=== PATIENT | male | born 1965 | race Caucasian/White ===

== ENCOUNTER 2018-11-10 17:56 | Emergency (ER) | payer OTHER ==
[~2018-11-10] VITALS: Ht 154.9 cm; Wt 102.0 kg
[2018-11-10] MEDS ORDERED: ondansetron/PF 4mg/2ml inj IV ONE (19:05)
[2018-11-10] MEDS ORDERED: normal saline 1000ML IV soln IVB ONE (19:05)
[2018-11-10 19:46] LABS: URINE AMPHETAMINE SCREEN NEGATIVE (Neg); URINE BARBITUATE SCREEN NEGATIVE (Neg); URINE BENZODIAZEPINES SCREEN NEGATIVE (Neg); URINE CANNABINOID SCREEN NEGATIVE (Neg); URINE COCAINE SCREEN NEGATIVE (Neg); URINE METHADONE SCREEN NEGATIVE (Neg); URINE OPIATE SCREEN NEGATIVE (Neg); URINE PHENCYCLIDINE SCREEN NEGATIVE (Neg)
[2018-11-10 19:53] LABS: BASOPHILS % (AUTO) 0.2 % (0-1); EOSINOPHILS # (AUTO) 0.1 X10'3 (0-0.9); EOSINOPHILS % (AUTO) 1.2 % (0-6); HEMOGLOBIN 15.1 g/dl (14.0-17.9); LYMPHOCYTES # (AUTO) 1.1 X10'3 (1.1-4.8); LYMPHOCYTES % (AUTO) 14.5 % (21-51); MEAN CORPUSCULAR HGB CONC 33.6 g/dL (33.0-36.5); MEAN CORPUSCULAR VOLUME 92.4 FL (78-98); MEAN PLATELET VOLUME 6.9 FL (7.4-10.4); MONOCYTES # (AUTO) 0.8 X10'3 (0-0.9); MONOCYTES % (AUTO) 9.9 % (2-12); NEUTROPHILS # (AUTO) 5.7 X10'3 (1.8-7.7); NEUTROPHILS % (AUTO) 74.2 % (42-75); PLATELET COUNT 167 X10'3 (140-440); RED BLOOD COUNT 4.87 X10'6 (4.70-6.10); RED CELL DISTRIBUTION WIDTH 13.4 % (11.5-14.5); WHITE BLOOD COUNT 7.7 X10'3 (4.5-11.0)
[2018-11-10 20:05] LABS: ALANINE AMINOTRANSFERASE 59 U/L (12-78); ALBUMIN 3.5 G/DL (3.4-5.0); ALBUMIN/GLOBULIN RATIO 1.1 (1.1-1.5); ALKALINE PHOSPHATASE 71 IU/L (46-116); ANION GAP 8 (8-16); ASPARTATE AMINO TRANSFERASE 52 U/L (10-37); BILIRUBIN,TOTAL 0.5 MG/DL (0.1-1.0); BLOOD UREA NITROGEN 13 MG/DL (7-18); BUN/CREATININE RATIO 16.3 (5.4-32.0); CALCIUM 7.7 MG/DL (8.5-10.1); CHLORIDE 104 MMOL/L (99-107); ETHANOL 0.198 GM/DL (0.0-0.010); GLUCOSE 94 MG/DL (70-104); LIPASE 152 U/L (73-393); MAGNESIUM 2.3 MG/DL (1.5-2.4); POTASSIUM 3.9 MMOL/L (3.5-5.1); SODIUM 139 MMOL/L (135-145); TOTAL CARBON DIOXIDE 27.2 MMOL/L (24-32); TOTAL PROTEIN 6.7 G/DL (6.4-8.2); eGFR > 90 ML/MIN
[2018-11-10 20:13] VITALS: BP 110/48
== END 2018-11-10 20:40 | disposition home or self-care (01) ==
LOC: ER 17:56
DX: F10.929 Alcohol use, unspecified with intoxication, unspecified (principal); R55 Syncope and collapse
CPT/HCPCS: 36415; 80053; 80305; 80320; 82948; 83690; 83735; 85025; 93005; 96361; 96374; 99284; J2405; J7030

== ENCOUNTER 2020-07-29 11:00 | Inpatient (IN) | payer OTHER ==
[~2020-07-29] VITALS: Ht 180.3 cm; Wt 94.1 kg
[2020-07-29 11:38] LABS: BASOPHILS # (AUTO) 0.1 X10'3 (0-0.2); BASOPHILS % (AUTO) 0.6 % (0-1); EOSINOPHILS % (AUTO) 0.2 % (0-6); HEMATOCRIT 45.5 % (42.0-52.0); HEMOGLOBIN 15.5 g/dl (14.0-17.9); LYMPHOCYTES # (AUTO) 1.1 X10'3 (1.1-4.8); LYMPHOCYTES % (AUTO) 12.1 % (21-51); MEAN CORPUSCULAR HEMOGLOBIN 31.7 PG (27.0-31.0); MEAN CORPUSCULAR VOLUME 93.2 FL (78-98); MEAN PLATELET VOLUME 7.3 FL (7.4-10.4); MONOCYTES % (AUTO) 11.3 % (2-12); NEUTROPHILS # (AUTO) 6.9 X10'3 (1.8-7.7); NEUTROPHILS % (AUTO) 75.8 % (42-75); PLATELET COUNT 161 X10'3 (140-440); RED BLOOD COUNT 4.88 X10'6 (4.70-6.10); RED CELL DISTRIBUTION WIDTH 13.2 % (11.5-14.5)
[2020-07-29 11:52] LABS: ALANINE AMINOTRANSFERASE 24 U/L (12-78); ALBUMIN 3.8 G/DL (3.4-5.0); ALKALINE PHOSPHATASE 63 IU/L (46-116); ANION GAP 8 (8-16); ASPARTATE AMINO TRANSFERASE 17 U/L (10-37); BILIRUBIN,TOTAL 2.5 MG/DL (0.1-1.0); BLOOD UREA NITROGEN 13 MG/DL (7-18); BUN/CREATININE RATIO 10.7 (5.4-32.0); CALCIUM 9.1 MG/DL (8.5-10.1); CHLORIDE 102 MMOL/L (99-107); CREATININE 1.21 MG/DL (0.60-1.10); GLUCOSE 112 MG/DL (70-104); POTASSIUM 3.8 MMOL/L (3.5-5.1); SODIUM 136 MMOL/L (135-145); TOTAL CARBON DIOXIDE 25.8 MMOL/L (24-32); TOTAL PROTEIN 7.7 G/DL (6.4-8.2); eGFR 62 ML/MIN
[2020-07-29 12:30] LABS: LIPASE 80 U/L (73-393)
[2020-07-29 12:32] LABS: D-DIMER 0.64 MG/L FEU (0-0.50)
[2020-07-29] MEDS ORDERED: iohexol 350MG/ML 100ml bottle IV ONE ×2 (12:47→17:20)
[2020-07-29] MEDS ORDERED: HYDROmorphone inj. 0.5 MG/0.5 ML DISP.SYRIN IV PRN (15:05)
[2020-07-29] MEDS ORDERED: mag hydrox/Alum hydrox/simeth 30ml oral suspension PO PRN (15:05)
[2020-07-29] MEDS ORDERED: potassium Cl 20 mEq SR tablet PO PRN ×2 (15:05)
[2020-07-29] MEDS ORDERED: magnesium 4gm in 100ml NS 100 ML IV PRN (15:05)
[2020-07-29] MEDS ORDERED: potassium CL 10mEq/100ml bag 100 ML IV PRN ×2 (15:05)
[2020-07-29] MEDS ORDERED: acetaminophen 325mg tablet PO PRN ×2 (15:05→21:05)
[2020-07-29] MEDS ORDERED: labetalol 20mg/4ml (5mg/ml) syringe IV PRN (15:05)
[2020-07-29] MEDS ORDERED: ondansetron/PF 4mg/2ml inj IV PRN ×2 (15:05→21:00)
[2020-07-29] MEDS ORDERED: magnesium 2GM in 50ml NS 50 ML IV PRN (15:05)
--- NOTE | 2020-07-29 15:18 | NUR ---
echo at bedside
[2020-07-29] MEDS ORDERED: dextrose 50%-water 50ml dispensing syringe IV PRN (15:30)
[2020-07-29] MEDS ORDERED: gabapentin 400mg capsule PO ONE (15:30)
[2020-07-29] MEDS ORDERED: vancomycin/NS 1 GM ADD-VANTAGE 250 ML IV ONE (15:30)
[2020-07-29] MEDS ORDERED: Insulin Reg/NS 100units/100mL 100 ML IV SCH (15:30)
[2020-07-29] MEDS ORDERED: MESSAGE TO NURSING PO ONE ×2 (15:30)
[2020-07-29] MEDS ORDERED: cefazolin/dext.iso 2gm/50ml 50 ML IV ONE (15:30)
[2020-07-29] MEDS ORDERED: MALTODEXTRIN/FRUCTOSE 0.68 KCAL/ML LIQUID 296ML BOTTLE PO ONE (15:30)
[2020-07-29] MEDS ORDERED: insulin glargine (Lantus) pen - multi-dose SQ PRN (15:30)
[2020-07-29] MEDS ORDERED: NO HOME MEDS (15:58)
[2020-07-29 16:05] LABS: PARTIAL THROMBOPLASTIN TIME 34 SECONDS (22-32)
--- NOTE | 2020-07-29 16:25 | NUR ---
SPOKE WITH DR. PEPE REGARDING INSULIN DRIP, ANTIBIOTICS AND ENSURE. HE STATES TO HOLD MEDS FOR THE FLOOR, NOT TO ADMINISTER IN THE ER, THEY ARE POST PROCEDURAL MEDS.
[2020-07-29 16:29] LABS: CLARITY,URINE CLEAR (Clear); COLOR,URINE YELLOW (Yellow); GLUCOSE, URINE NEGATIVE (Neg); KETONES,URINE TRACE mg/dl (Neg); LEUKOCYTE ESTERASE ,URINE NEGATIVE (Neg); NITRITES, URINE NEGATIVE (Neg); OCCULT BLOOD,URINE NEGATIVE (Neg); PROTEIN,URINE NEGATIVE (Neg); UROBILINOGEN,URINE 0.2 E.U/dL (0.2-1.0)
[2020-07-29 16:30] LABS: UA COLLECTION TYPE VOIDED
[2020-07-29] MEDS ORDERED: midazolam 2 mg/2 ml injection ONE (17:20)
[2020-07-29] MEDS ORDERED: LIDOcaine 1% (10mg/ml)w/preservative injection 20ml MDV ONE (17:20)
[2020-07-29] MEDS ORDERED: fentaNYL/PF 50MCG/1 ML 2ML syringe ONE (17:20)
[2020-07-29] MEDS ORDERED: verapamil 2.5 mg/ml inj IV ONE (17:20)
[2020-07-29] MEDS ORDERED: nitroGLYCERIN-Tridil 50MG/D5W 250 ML IV ONE (17:20)
[2020-07-29] MEDS ORDERED: heparin 1,000unit/ml 10ml vial 10 ML ONE (17:20)
[2020-07-29] MEDS ORDERED: ringers solution, lacted 1,000 ML IV ONE (17:25)
[2020-07-29] MEDS ORDERED: iohexol 350 MG/ML 50ML vial IV ONE (18:31)
[2020-07-29] MEDS: K and/or MAG REPLACEMENT MC SCH (20:00)
[2020-07-29] MEDS ORDERED: enoxaparin 40mg/0.4ml syringe SQ SCH (20:00)
--- NOTE | 2020-07-29 20:25 | NUR ---
Patient was waiting in the laborer cement gun placing post heart cath for two hours until a bed was available for the ACCE unit floor. Upon speaking to RN at [facility], she states that she has obtained the post op vitals for the two hours and that they are in the chart.
--- NOTE | 2020-07-29 20:25 | NUR ---
Patient in room MED 314. I have received report from Luciana CLARKE and had the opportunity to ask questions and assume patient care. RN stated that post op vitals were taken for two hours prior to transfer to ACCE
[2020-07-29 20:45] VITALS: BP 131/78
[2020-07-29] MEDS ORDERED: nitroGLYCERIN 0.4mg SUBLingual tab SL PRN (21:05)
[2020-07-29] MEDS ORDERED: proCHLORperazine 10 MG/2 ml inj IV PRN (21:05)
[2020-07-29] MEDS ORDERED: OXAZEpam 15mg capsule PO PRN (21:05)
[2020-07-29] MEDS ORDERED: HYDROcodone/acetaminophen 5mg/325mg tablet PO PRN (21:05)
[2020-07-29] MEDS ORDERED: HYDROcodone/acetaminophen 10/325mg tab PO PRN (21:05)
[2020-07-29] MEDS ORDERED: thiamine inj. 100 MG in normal saline 100ml IV soln 100 ML IV ONE (21:05)
[2020-07-29] MEDS ORDERED: haloperidol 5mg tablet PO PRN (21:05)
[2020-07-29] MEDS ORDERED: LORazepam 1 MG tablet PO PRN (21:05)
[2020-07-29] MEDS ORDERED: LORazepam 2 mg/ml vial IV PRN (21:05)
[2020-07-29] MEDS ORDERED: haloperidol lactate 5mg/ml inj IM PRN (21:05)
[2020-07-29] MEDS ORDERED: thiamine 100mg/ml 2ml inj. IV ONE (21:10)
[2020-07-29 21:15] VITALS: BP 112/62
--- NOTE | 2020-07-29 21:30 | NUR ---
Paged Vascular 314 ([place]) pt has vascular studies (carotid/venous) ordered for heart surgery 07/30 @ 0084. Thanks
[2020-07-29 21:45] VITALS: BP 111/68
[2020-07-29 22:15] VITALS: BP 113/67
[2020-07-29 23:00] VITALS: BP 115/71
[2020-07-29] MEDS: metoprolol tartrate 12.5mg (1/2 tablet) PO SCH (23:08)
[2020-07-29] MEDS: docusate sod 100mg capsule PO SCH (23:09)
[2020-07-30] VITALS (16 sets, daily range): BP systolic 109–145; BP diastolic 59–75
[2020-07-30 02:10] LABS: ABG BASE EXCESS -1.6 mmol/L (-2.0-2.0); ABG HCO3 22.1 mmol/L (22.0-26.0); ABG OXYGEN SATURATION 95.8 % (94-97); ABG PO2 (T) 77.7 mmHg (75.0-100.0); FCOHb 0.6 % (0.0-3.9); FMetHb 0.1 % (0.0-1.5); FO2Hb 95.1 % (94-97); TOTAL HEMOGLOBIN 15.4 G/dl (14.0-18.0)
[2020-07-30 03:04] LABS: BASOPHILS % (AUTO) 0.5 % (0-1); EOSINOPHILS # (AUTO) 0.2 X10'3 (0-0.9); EOSINOPHILS % (AUTO) 1.9 % (0-6); HEMATOCRIT 45.4 % (42.0-52.0); HEMOGLOBIN 15.3 g/dl (14.0-17.9); LYMPHOCYTES % (AUTO) 11.8 % (21-51); MEAN CORPUSCULAR HEMOGLOBIN 31.9 PG (27.0-31.0); MEAN CORPUSCULAR HGB CONC 33.7 g/dL (33.0-36.5); MEAN CORPUSCULAR VOLUME 94.7 FL (78-98); MEAN PLATELET VOLUME 7.4 FL (7.4-10.4); MONOCYTES # (AUTO) 1.1 X10'3 (0-0.9); MONOCYTES % (AUTO) 12.9 % (2-12); NEUTROPHILS % (AUTO) 72.9 % (42-75); PLATELET COUNT 161 X10'3 (140-440); RED BLOOD COUNT 4.79 X10'6 (4.70-6.10); RED CELL DISTRIBUTION WIDTH 13.5 % (11.5-14.5); WHITE BLOOD COUNT 8.2 X10'3 (4.5-11.0)
[2020-07-30 03:19] LABS: ALBUMIN 3.6 G/DL (3.4-5.0); ANION GAP 7 (8-16); BLOOD UREA NITROGEN 12 MG/DL (7-18); BUN/CREATININE RATIO 10.7 (5.4-32.0); CALCIUM 9.1 MG/DL (8.5-10.1); CHLORIDE 105 MMOL/L (99-107); CHOL/HDL RATIO 1.3 (0.00-4.99); CHOLESTEROL 120 MG/DL (0-200); CREATININE 1.12 MG/DL (0.60-1.10); GLUCOSE 106 MG/DL (70-104); HDL CHOLESTEROL 91 MG/DL (35-60); LDL CHOLESTEROL 27 MG/DL (50-100); MAGNESIUM 2.6 MG/DL (1.5-2.4); POTASSIUM 4.1 MMOL/L (3.5-5.1); SODIUM 140 MMOL/L (135-145); TOTAL CARBON DIOXIDE 27.7 MMOL/L (24-32); TRIGLYCERIDES 70 MG/DL (20-135); eGFR 68 ML/MIN
[2020-07-30] MEDS ORDERED: MALTODEXTRIN/FRUCTOSE 0.68 KCAL/ML LIQUID 296ML BOTTLE PO ONE (05:30)
[2020-07-30] MEDS ORDERED: cefazolin/dext.iso 2gm/50ml 50 ML IV ONE (05:30)
[2020-07-30] MEDS ORDERED: gabapentin 400mg capsule PO ONE (05:30)
[2020-07-30] MEDS ORDERED: vancomycin/NS 1 GM ADD-VANTAGE 250 ML IV ONE (05:30)
[2020-07-30] MEDS: Insulin Reg/NS 100units/100mL 100 ML IV SCH ×2 (05:30→18:00)
[2020-07-30] MEDS: mupirocin 2% nasal ointment 1gm UD NS SCH ×3 (05:31→19:38)
[2020-07-30] MEDS ORDERED: ceFAZolin 1000mg inj ONE (05:57)
[2020-07-30] MEDS ORDERED: LORazepam 2 mg/ml vial IV ONE ×2 (06:00)
[2020-07-30] MEDS ORDERED: famotidine 20mg tablet PO ONE (06:00)
[2020-07-30] MEDS: metoprolol tartrate 12.5mg (1/2 tablet) PO SCH (06:25)
--- NOTE | 2020-07-30 06:40 | NUR ---
Problems reprioritized. Patient report given, questions answered & plan of care reviewed with Kell CLARKE.
[2020-07-30] MEDS ORDERED: SUFENTANIL CITRATE 50 MCG/ML 2ml ampule IV ONE (06:42)
[2020-07-30] MEDS ORDERED: midazolam 2 mg/2 ml injection ONE (06:42)
--- NOTE | 2020-07-30 07:13 | NUR ---
pt. wheeled to OR at 0640.
[2020-07-30 07:35] LABS: ABG BASE EXCESS -2.8 mmol/L (-2.0-2.0); ABG HCO3 21.3 mmol/L (22.0-26.0); ABG OXYGEN SATURATION 99.8 % (94-97); CL (ABG) 105 mmol/L (98-110); FCOHb 0.7 % (0.0-3.9); FO2Hb 99.1 % (94-97); GLUCOSE (ABG) 171 mg/dl (70-140); IONIZED CA (ABG) 1.14 mmol/L (1.10-1.43); K (ABG) 3.5 mmol/L (3.5-5.0); TOTAL HEMOGLOBIN 13.7 G/dl (14.0-18.0)
[2020-07-30] MEDS ORDERED: folic acid 1mg/0.2ml inj IV SCH (08:00)
[2020-07-30] MEDS: K and/or MAG REPLACEMENT MC SCH (08:00)
[2020-07-30] MEDS ORDERED: thiamine inj. 100 MG, MVI, adult No.4 with vit. K 10 ML in dextrose 5% water 500ml 500 ML IV SCH ×3 (08:00)
[2020-07-30] MEDS ORDERED: ticagrelor 90mg tablet PO SCH (08:00)
[2020-07-30] MEDS: docusate sod 100mg capsule PO SCH (08:00)
[2020-07-30 08:25] LABS: ABG HCO3 24.8 mmol/L (22.0-26.0); ABG OXYGEN SATURATION 99.6 % (94-97); ABG PCO2 40.5 mmHg (35.0-48.0); ABG PO2 287.3 mmHg (75.0-100.0); CL (ABG) 103 mmol/L (98-110); FCOHb 0.4 % (0.0-3.9); FMetHb 0.1 % (0.0-1.5); FO2Hb 99.1 % (94-97); GLUCOSE (ABG) 99 mg/dl (70-140); IONIZED CA (ABG) 1.03 mmol/L (1.10-1.43); K (ABG) 3.6 mmol/L (3.5-5.0); TOTAL HEMOGLOBIN 11.6 G/dl (14.0-18.0)
[2020-07-30] MEDS ORDERED: ipratropium/albuterol 3ml nebule IH PRN (08:35)
[2020-07-30 08:56] LABS: ABG BASE EXCESS VENOUS -1.5 mmol/L; ABG HCO3 VENOUS 25.4 mmol/L; ABG PCO2 VENOUS 52.5 mmHg; ABG PO2 VENOUS 56.7 mmHg; CL (ABG) 104 mmol/L (98-110); FCOHb VENOUS 0.6 %; FHHb VENOUS 11.5 %; FMetHb VENOUS 0.3 %; FO2Hb VENOUS 87.6 %; GLUCOSE (ABG) 103 mg/dl (70-140); IONIZED CA (ABG) 1.09 mmol/L (1.10-1.43); K (ABG) 4.1 mmol/L (3.5-5.0); TOTAL HEMOGLOBIN 11.8 G/dl (14.0-18.0)
[2020-07-30] MEDS ORDERED: sodium bicarbonate (8.4%) 1 mEq/ml syringe ONE (09:00)
[2020-07-30] MEDS ORDERED: MAGNESIUM SULFATE 4 MEQ/ML (5gm/10ml) injection ONE (09:00)
[2020-07-30] MEDS ORDERED: potassium Cl 2 mEq/ml inj IV ONE (09:00)
[2020-07-30] MEDS ORDERED: heparin 1,000 units/ml 10ml inj ONE (09:00)
[2020-07-30] MEDS ORDERED: aminocaproic acid 250 MG/1 ML inj. ONE (09:00)
[2020-07-30] MEDS ORDERED: methylPREDNISolone sod succ 1000mg vial ONE (09:00)
[2020-07-30] MEDS ORDERED: heparin 10,000 units/1 ML INJ ONE (09:00)
[2020-07-30] MEDS ORDERED: albumin (human) 25% 100 ML IV solution IV ONE (09:00)
[2020-07-30] MEDS ORDERED: calcium chloride 100 MG/1 ML inj IV ONE (09:00)
[2020-07-30] MEDS ORDERED: phenylephrine 10mg/ml inj. ONE ×2 (09:00→13:04)
[2020-07-30] MEDS ORDERED: LIDOcaine 2% (20 mg/ml) 5ml cardiac syringe ONE (09:00)
[2020-07-30 09:35] LABS: ABG BASE EXCESS -2.6 mmol/L (-2.0-2.0); ABG HCO3 22.1 mmol/L (22.0-26.0); ABG OXYGEN SATURATION 98.7 % (94-97); ABG PO2 126.3 mmHg (75.0-100.0); CL (ABG) 106 mmol/L (98-110); FCOHb 0.9 % (0.0-3.9); FMetHb 0.3 % (0.0-1.5); FO2Hb 97.5 % (94-97); GLUCOSE (ABG) 122 mg/dl (70-140); IONIZED CA (ABG) 1.07 mmol/L (1.10-1.43); K (ABG) 3.3 mmol/L (3.5-5.0); TOTAL HEMOGLOBIN 12.2 G/dl (14.0-18.0)
[2020-07-30 10:40] LABS: ABG BASE EXCESS -7.1 mmol/L (-2.0-2.0); ABG HCO3 17.6 mmol/L (22.0-26.0); ABG OXYGEN SATURATION 99.3 % (94-97); ABG PCO2 32.5 mmHg (35.0-48.0); ABG PO2 213.5 mmHg (75.0-100.0); CL (ABG) 105 mmol/L (98-110); FCOHb 0.4 % (0.0-3.9); FMetHb 0.3 % (0.0-1.5); FO2Hb 98.6 % (94-97); GLUCOSE (ABG) 174 mg/dl (70-140); IONIZED CA (ABG) 1.04 mmol/L (1.10-1.43); K (ABG) 3.5 mmol/L (3.5-5.0); TOTAL HEMOGLOBIN 11.2 G/dl (14.0-18.0)
[2020-07-30 11:05] LABS: ABG BASE EXCESS -3.7 mmol/L (-2.0-2.0); ABG HCO3 21.6 mmol/L (22.0-26.0); ABG OXYGEN SATURATION 99.5 % (94-97); ABG PCO2 40.1 mmHg (35.0-48.0); ABG PO2 403.3 mmHg (75.0-100.0); CL (ABG) 102 mmol/L (98-110); FCOHb 0.4 % (0.0-3.9); FMetHb 0.3 % (0.0-1.5); FO2Hb 98.8 % (94-97); GLUCOSE (ABG) 171 mg/dl (70-140); IONIZED CA (ABG) 1.29 mmol/L (1.10-1.43); TOTAL HEMOGLOBIN 9.7 G/dl (14.0-18.0)
[2020-07-30 12:10] LABS: ABG BASE EXCESS VENOUS 0.1 mmol/L; ABG HCO3 VENOUS 25.1 mmol/L; ABG PCO2 VENOUS 42.3 mmHg; ABG PO2 VENOUS 33.9 mmHg; CL (ABG) 103 mmol/L (98-110); FCOHb VENOUS 1.1 %; FHHb VENOUS 30.8 %; FMetHb VENOUS 0.1 %; GLUCOSE (ABG) 195 mg/dl (70-140); IONIZED CA (ABG) 1.06 mmol/L (1.10-1.43); K (ABG) 3.6 mmol/L (3.5-5.0)
[2020-07-30] MEDS ORDERED: niCARDipine-NS 40mg/200ml IVPB 200 ML IV ONE (12:25)
--- NOTE | 2020-07-30 12:30 | NUR ---
Received to room 2039, accompanied by MDs and surgical crew. Placed on ventilator, to quality assurance monitor, arterial line and PA line pressure monitored. Chest tubes to suction at 20 cm. Jackson cath to gravity drainage. Dressings are dry and intact. See assessment record. All vasoactive drugs are infusing via central line.
[2020-07-30] MEDS ORDERED: niCARDipine-NS 40mg/200ml IVPB 200 ML IV PRN (12:35)
[2020-07-30] MEDS ORDERED: insulin glargine (Lantus) pen - multi-dose SQ PRN (12:35)
[2020-07-30] MEDS ORDERED: pantoprazole 40 MG vial IV ONE (12:35)
[2020-07-30] MEDS ORDERED: acetaminophen 325mg tablet PO PRN ×2 (12:35)
[2020-07-30] MEDS ORDERED: magnesium hydroxide 30ml (MOM) UD suspension PO PRN (12:35)
[2020-07-30] MEDS ORDERED: nitroGLYCERIN-Tridil 50MG/D5W 250 ML IV PRN (12:35)
[2020-07-30] MEDS ORDERED: albumin (Human) 5% 250ml 250 ML IV PRN (12:35)
[2020-07-30] MEDS ORDERED: ondansetron/PF 4mg/2ml inj IV PRN (12:35)
[2020-07-30] MEDS ORDERED: normal saline 250ml IV soln 250 ML IV PRN (12:35)
[2020-07-30] MEDS ORDERED: Insulin Reg/NS 100units/100mL 100 ML IV SCH (12:35)
[2020-07-30] MEDS ORDERED: magnesium 2GM in 50ml NS 50 ML IV PRN (12:35)
[2020-07-30] MEDS ORDERED: morphine 4 MG/ML inj SYRINge IV PRN ×2 (12:35)
[2020-07-30] MEDS ORDERED: sodium phosphate inj. 15 MMOL in dextrose 5%-water 250 ML IV PRN (12:35)
[2020-07-30] MEDS ORDERED: dextrose 50%-water 50ml dispensing syringe IV PRN (12:35)
[2020-07-30] MEDS ORDERED: Neutra Phos packet PO PRN (12:35)
[2020-07-30] MEDS ORDERED: magnesium citrate 296ml oral solution PO PRN (12:35)
[2020-07-30] MEDS ORDERED: sodium phosphate inj. 30 MMOL in dextrose 5%-water 250 ML IV PRN (12:35)
[2020-07-30] MEDS ORDERED: bisacodyl 10mg suppository rectal RC PRN (12:35)
[2020-07-30] MEDS ORDERED: magnesium 4gm in 100ml NS 100 ML IV PRN (12:35)
[2020-07-30] MEDS ORDERED: DOPamine 400mg/D5W 250ml 250 ML IV PRN (12:35)
[2020-07-30] MEDS ORDERED: mineral oil 133ml enema RC PRN (12:35)
[2020-07-30] MEDS ORDERED: metoclopramide 5 mg/ml inj IV PRN (12:35)
[2020-07-30] MEDS ORDERED: morphine 4 MG/ML inj SYRINge ONE (12:37)
[2020-07-30] MEDS ORDERED: meperidine/PF 25mg/ml syringe IV STA (12:41)
--- NOTE | 2020-07-30 12:42 | NUR ---
CABG Consult: Pt s/p heart surgery and will benefit from high protein/heart healthy ed once stable as medically indicated post-op. Will f/u 08/03 for initial assessment. Addendum: 07/30/20 at [address] Amended: Links added.
[2020-07-30] MEDS: propofol 1000mg/100ml bottle 100 ML IV SCH (12:50)
[2020-07-30 12:58] LABS: BASOPHILS % (AUTO) 0 % (0-1); EOSINOPHILS % (AUTO) 0.3 % (0-6); HEMATOCRIT 32.5 % (42.0-52.0); LYMPHOCYTES # (AUTO) 0.4 X10'3 (1.1-4.8); LYMPHOCYTES % (AUTO) 4.4 % (21-51); MEAN CORPUSCULAR HEMOGLOBIN 31.6 PG (27.0-31.0); MEAN CORPUSCULAR HGB CONC 33.8 g/dL (33.0-36.5); MEAN CORPUSCULAR VOLUME 93.3 FL (78-98); MEAN PLATELET VOLUME 7.1 FL (7.4-10.4); MONOCYTES # (AUTO) 0.5 X10'3 (0-0.9); MONOCYTES % (AUTO) 5.5 % (2-12); NEUTROPHILS # (AUTO) 7.9 X10'3 (1.8-7.7); NEUTROPHILS % (AUTO) 89.8 % (42-75); PLATELET COUNT 140 X10'3 (140-440); RED BLOOD COUNT 3.49 X10'6 (4.70-6.10); WHITE BLOOD COUNT 8.8 X10'3 (4.5-11.0)
[2020-07-30] MEDS ORDERED: etomidate 2mg/ml inj. ONE (13:04)
[2020-07-30] MEDS ORDERED: rocuronium 10mg/ml inj IV ONE (13:04)
[2020-07-30] MEDS ORDERED: acetaminophen 1,000mg/100ml IV 100 ML IV ONE (13:04)
[2020-07-30] MEDS ORDERED: LIDOcaine 2% (20mg/ml) 5ml vial ONE (13:04)
[2020-07-30 13:15] LABS: ALANINE AMINOTRANSFERASE 18 U/L (12-78); ALBUMIN 3.1 G/DL (3.4-5.0); ALBUMIN/GLOBULIN RATIO 1.1 (1.1-1.5); ALKALINE PHOSPHATASE 47 IU/L (46-116); ANION GAP 8 (8-16); ASPARTATE AMINO TRANSFERASE 39 U/L (10-37); BILIRUBIN,TOTAL 1.8 MG/DL (0.1-1.0); BLOOD UREA NITROGEN 12 MG/DL (7-18); BUN/CREATININE RATIO 9.4 (5.4-32.0); CALCIUM 8.4 MG/DL (8.5-10.1); CHLORIDE 109 MMOL/L (99-107); CREATININE 1.27 MG/DL (0.60-1.10); GLUCOSE 177 MG/DL (70-104); SODIUM 143 MMOL/L (135-145); TOTAL CARBON DIOXIDE 26.2 MMOL/L (24-32); eGFR 59 ML/MIN
[2020-07-30 13:16] LABS: ABG BASE EXCESS -2.9 mmol/L (-2.0-2.0); ABG HCO3 23.2 mmol/L (22.0-26.0); ABG OXYGEN SATURATION 97.7 % (94-97); ABG PCO2 (T) 45.2 mmHg (35.0-48.0); FCOHb 0.3 % (0.0-3.9); FMetHb 0.4 % (0.0-1.5); PATIENT TEMPERATURE 36.8; RESPIRATORY RATE 12 b/min; TIDAL VOLUME 650 mL; TOTAL HEMOGLOBIN 12.4 G/dl (14.0-18.0)
[2020-07-30 13:23] LABS: POTASSIUM 3.4 MMOL/L (3.5-5.1)
[2020-07-30] MEDS: gabapentin 300mg capsule PO SCH ×2 (13:29→21:00)
[2020-07-30] MEDS: sodium chloride 0.45% 1,000 ML IV SCH (13:30)
[2020-07-30] MEDS: potassium Cl 20mEq/100mL bag 100 ML IV PRN ×4 (13:32→18:04)
[2020-07-30 13:35] LABS: PARTIAL THROMBOPLASTIN TIME 30 SECONDS (22-32)
[2020-07-30 13:36] LABS: MAGNESIUM 4.3 MG/DL (1.5-2.4)
--- NOTE | 2020-07-30 13:40 | NUR ---
Critical Phosph 1.0 and critical Magnesium 4.3; Dr. Martins at the bedside aware; will replace per protocol and monitor Mg on recheck.
[2020-07-30] MEDS: ceFAZolin/D5W- 1GM premix 50 ML IV SCH (16:23)
--- NOTE | 2020-07-30 18:24 | NUR ---
Problems reprioritized. Patient report given, questions answered & plan of care reviewed with Harriet CLARKE.
--- NOTE | 2020-07-30 18:54 | NUR ---
Patient in room ICU 2039. I have received report from Chuckie CLARKE and had the opportunity to ask questions and assume patient care.
[2020-07-30 19:22] LABS: HEMOGLOBIN 11.9 g/dl (14.0-17.9); MEAN PLATELET VOLUME 7.5 FL (7.4-10.4); WHITE BLOOD COUNT 8.4 X10'3 (4.5-11.0)
[2020-07-30 19:24] LABS: BASOPHILS % (AUTO) 0.1 % (0-1); EOSINOPHILS % (AUTO) 0 % (0-6); HEMATOCRIT 34.5 % (42.0-52.0); LYMPHOCYTES # (AUTO) 0.1 X10'3 (1.1-4.8); LYMPHOCYTES % (AUTO) 1.7 % (21-51); MEAN CORPUSCULAR HEMOGLOBIN 32.4 PG (27.0-31.0); MEAN CORPUSCULAR HGB CONC 34.5 g/dL (33.0-36.5); MONOCYTES # (AUTO) 0.2 X10'3 (0-0.9); MONOCYTES % (AUTO) 2.9 % (2-12); NEUTROPHILS % (AUTO) 95.3 % (42-75); PLATELET COUNT 147 X10'3 (140-440); RED BLOOD COUNT 3.67 X10'6 (4.70-6.10)
[2020-07-30] MEDS ORDERED: albuterol 2.5 MG/3 ML nebule CONTNEB ONE (19:25)
[2020-07-30] MEDS ORDERED: dextrose 50%-water 50ml dispensing syringe IV ONE (19:25)
[2020-07-30] MEDS ORDERED: calcium chloride inj. 1,000 MG in normal saline 100ml IV soln 100 ML IV ONE (19:25)
[2020-07-30] MEDS ORDERED: sodium bicarbonate (8.4%) 1 mEq/ml syringe IV ONE (19:25)
[2020-07-30] MEDS ORDERED: insulin regular, human 10 units/0.1 ml syringe IV ONE (19:25)
[2020-07-30] MEDS ORDERED: sodium polystyrene sulfonate 15gm/60ml oral suspension PO ONE (19:25)
[2020-07-30 19:26] LABS: ANION GAP 11 (8-16); BLOOD UREA NITROGEN 12 MG/DL (7-18); BUN/CREATININE RATIO 10.3 (5.4-32.0); CALCIUM 7.9 MG/DL (8.5-10.1); CHLORIDE 109 MMOL/L (99-107); CREATININE 1.17 MG/DL (0.60-1.10); GLUCOSE 126 MG/DL (70-104); MAGNESIUM 2.9 MG/DL (1.5-2.4); PHOSPHORUS 2.5 MG/DL (2.3-4.5); SODIUM 142 MMOL/L (135-145); TOTAL CARBON DIOXIDE 22.2 MMOL/L (24-32); eGFR 65 ML/MIN
[2020-07-30] MEDS: vancomycin/NS 1 GM ADD-VANTAGE 250 ML IV SCH (19:38)
[2020-07-30] MEDS: sennosides/docusate sodium tablet PO SCH (19:38)
[2020-07-30] MEDS: atorvastatin 10mg tablet PO SCH (21:00)
[2020-07-30 22:40] LABS: ABG BASE EXCESS -2.3 mmol/L (-2.0-2.0); ABG HCO3 21.8 mmol/L (22.0-26.0); ABG OXYGEN SATURATION 93.9 % (94-97); ABG PCO2 (T) 36.9 mmHg (35.0-48.0); ABG PO2 (T) 75.9 mmHg (75.0-100.0); FCOHb 0.3 % (0.0-3.9); FMetHb 0.3 % (0.0-1.5); FO2Hb 93.3 % (94-97); PEEP 5 cm H2O; RESPIRATORY RATE 14 b/min; TOTAL HEMOGLOBIN 12.4 G/dl (14.0-18.0)
--- NOTE | 2020-07-30 23:00 | NUR ---
1924: spoke with patient's , questions answered, update given. 0;extubated with RT without incident to 4LNC.
[2020-07-31] VITALS (24 sets, daily range): BP systolic 94–165; BP diastolic 60–83
[2020-07-31] MEDS: ceFAZolin/D5W- 1GM premix 50 ML IV SCH ×3 (00:25→16:46)
[2020-07-31 03:17] LABS: HEMOGLOBIN 11.3 g/dl (14.0-17.9); MEAN CORPUSCULAR HEMOGLOBIN 31.4 PG (27.0-31.0); WHITE BLOOD COUNT 13.4 X10'3 (4.5-11.0)
[2020-07-31 03:19] LABS: BASOPHILS % (AUTO) 0.3 % (0-1); EOSINOPHILS % (AUTO) 0 % (0-6); HEMATOCRIT 33.5 % (42.0-52.0); LYMPHOCYTES # (AUTO) 0.4 X10'3 (1.1-4.8); LYMPHOCYTES % (AUTO) 2.8 % (21-51); MEAN CORPUSCULAR HGB CONC 33.7 g/dL (33.0-36.5); MEAN CORPUSCULAR VOLUME 93.3 FL (78-98); MEAN PLATELET VOLUME 7.8 FL (7.4-10.4); MONOCYTES # (AUTO) 0.8 X10'3 (0-0.9); MONOCYTES % (AUTO) 6.3 % (2-12); NEUTROPHILS # (AUTO) 12.1 X10'3 (1.8-7.7); NEUTROPHILS % (AUTO) 90.6 % (42-75); PARTIAL THROMBOPLASTIN TIME 28 SECONDS (22-32); PLATELET COUNT 135 X10'3 (140-440); RED BLOOD COUNT 3.59 X10'6 (4.70-6.10); RED CELL DISTRIBUTION WIDTH 13.1 % (11.5-14.5)
[2020-07-31 03:34] LABS: ALANINE AMINOTRANSFERASE 24 U/L (12-78); ALKALINE PHOSPHATASE 41 IU/L (46-116); ANION GAP 8 (8-16); ASPARTATE AMINO TRANSFERASE 78 U/L (10-37); BILIRUBIN,TOTAL 0.9 MG/DL (0.1-1.0); BLOOD UREA NITROGEN 13 MG/DL (7-18); BUN/CREATININE RATIO 13.3 (5.4-32.0); CHLORIDE 113 MMOL/L (99-107); CREATININE 0.98 MG/DL (0.60-1.10); GLUCOSE 106 MG/DL (70-104); PHOSPHORUS 3.5 MG/DL (2.3-4.5); POTASSIUM 3.9 MMOL/L (3.5-5.1); SODIUM 146 MMOL/L (135-145); TOTAL CARBON DIOXIDE 24.6 MMOL/L (24-32); TOTAL PROTEIN 6.1 G/DL (6.4-8.2); eGFR 80 ML/MIN
[2020-07-31] MEDS: potassium Cl 20mEq/100mL bag 100 ML IV PRN ×2 (04:03→05:19)
--- NOTE | 2020-07-31 06:30 | NUR ---
Patient in room ICU 2039. I have received report from Harriet CLARKE and had the opportunity to ask questions and assume patient care.
--- NOTE | 2020-07-31 07:00 | NUR ---
Dr. Martins did pacer check, no underlining rhythm.
[2020-07-31] MEDS: sennosides/docusate sodium tablet PO SCH ×2 (07:44→20:54)
[2020-07-31] MEDS: mupirocin 2% nasal ointment 1gm UD NS SCH ×2 (07:44→20:55)
[2020-07-31] MEDS: gabapentin 300mg capsule PO SCH ×3 (07:44→20:54)
[2020-07-31] MEDS: aspirin 325mg tablet, delayed-release (Ecotrin) PO SCH (07:44)
[2020-07-31] MEDS: potassium Cl 20 mEq SR tablet PO PRN (07:53)
[2020-07-31] MEDS ORDERED: metoprolol tartrate 12.5mg (1/2 tablet) PO SCH (08:00)
--- NOTE | 2020-07-31 08:15 | NUR ---
Problems reprioritized. Patient report given, questions answered & plan of care reviewed with Chuckie CLARKE.
[2020-07-31] MEDS: vancomycin/NS 1 GM ADD-VANTAGE 250 ML IV SCH ×2 (08:28→20:54)
[2020-07-31] MEDS: insulin Lispro (HumaLOG) vial - multi-dose SQ SCH ×3 (08:42→18:37)
[2020-07-31] MEDS: amLODIPine 5mg tablet PO SCH (10:30)
[2020-07-31] MEDS ORDERED: amLODIPine 5mg tablet PO ONE (11:55)
[2020-07-31] MEDS: HYDROcodone/acetaminophen 10/325mg tab PO PRN (13:49)
--- NOTE | 2020-07-31 14:48 | NUR ---
Spoke to Dr Martins regarding pacer sensitivity as pacer started v pacing at 110. Turned the rate up to 70 and turned A tracking and now patient av paced at 70
[2020-07-31] MEDS: atorvastatin 10mg tablet PO SCH (20:54)
[2020-07-31] MEDS: propofol 1000mg/100ml bottle 100 ML IV SCH (23:34)
[2020-08-01] VITALS (23 sets, daily range): BP systolic 104–149; BP diastolic 61–89
[2020-08-01] MEDS: ceFAZolin/D5W- 1GM premix 50 ML IV SCH (00:07)
[2020-08-01 04:06] LABS: ANION GAP 6 (8-16); BLOOD UREA NITROGEN 17 MG/DL (7-18); BUN/CREATININE RATIO 18.5 (5.4-32.0); CALCIUM 8.2 MG/DL (8.5-10.1); CHLORIDE 108 MMOL/L (99-107); CREATININE 0.92 MG/DL (0.60-1.10); GLUCOSE 147 MG/DL (70-104); MAGNESIUM 2.9 MG/DL (1.5-2.4); PHOSPHORUS 2.5 MG/DL (2.3-4.5); POTASSIUM 4.6 MMOL/L (3.5-5.1); SODIUM 139 MMOL/L (135-145); TOTAL CARBON DIOXIDE 25.3 MMOL/L (24-32); eGFR 86 ML/MIN
[2020-08-01 04:13] LABS: BASOPHILS % (AUTO) 0.2 % (0-1); EOSINOPHILS % (AUTO) 0 % (0-6); HEMATOCRIT 34.7 % (42.0-52.0); HEMOGLOBIN 11.7 g/dl (14.0-17.9); LYMPHOCYTES # (AUTO) 0.6 X10'3 (1.1-4.8); LYMPHOCYTES % (AUTO) 3.4 % (21-51); MEAN CORPUSCULAR HEMOGLOBIN 31.6 PG (27.0-31.0); MEAN CORPUSCULAR HGB CONC 33.6 g/dL (33.0-36.5); MEAN CORPUSCULAR VOLUME 94.1 FL (78-98); MEAN PLATELET VOLUME 7.9 FL (7.4-10.4); MONOCYTES # (AUTO) 1.3 X10'3 (0-0.9); MONOCYTES % (AUTO) 7.6 % (2-12); NEUTROPHILS # (AUTO) 15.3 X10'3 (1.8-7.7); NEUTROPHILS % (AUTO) 88.8 % (42-75); PLATELET COUNT 123 X10'3 (140-440); RED BLOOD COUNT 3.69 X10'6 (4.70-6.10); RED CELL DISTRIBUTION WIDTH 13.2 % (11.5-14.5); WHITE BLOOD COUNT 17.2 X10'3 (4.5-11.0)
--- NOTE | 2020-08-01 06:34 | NUR ---
Problems reprioritized. Patient report given, questions answered & plan of care reviewed with TRICIA Bautista.
[2020-08-01] MEDS: pantoprazole 40mg Tablet.DR PO SCH (08:11)
[2020-08-01] MEDS: sennosides/docusate sodium tablet PO SCH ×2 (08:11→20:56)
[2020-08-01] MEDS: mupirocin 2% nasal ointment 1gm UD NS SCH (08:11)
[2020-08-01] MEDS: aspirin 325mg tablet, delayed-release (Ecotrin) PO SCH (08:11)
[2020-08-01] MEDS: amLODIPine 5mg tablet PO SCH (08:11)
[2020-08-01] MEDS: gabapentin 300mg capsule PO SCH (08:11)
[2020-08-01] MEDS: insulin Lispro (HumaLOG) vial - multi-dose SQ SCH ×2 (13:22→18:58)
[2020-08-01] MEDS: sodium chloride 0.45% 1,000 ML IV SCH (13:55)
[2020-08-01] MEDS: Insulin Reg/NS 100units/100mL 100 ML IV SCH (18:05)
--- NOTE | 2020-08-01 18:22 | NUR ---
Problems reprioritized. Patient report given, questions answered & plan of care reviewed with Opal CLARKE.
--- NOTE | 2020-08-01 18:30 | NUR ---
Problems reprioritized. Patient report given, questions answered & plan of care reviewed with TRICIA Bautista. Addendum: 08/01/20 at 5 by Opal Moon RN Patient in room ICU 2039. I have received report from TRICIA Bautista and had the opportunity to ask questions and assume patient care.
[2020-08-01] MEDS: lisinopril 2.5mg tablet PO SCH (20:56)
[2020-08-01] MEDS: atorvastatin 10mg tablet PO SCH (20:57)
[2020-08-02] VITALS (21 sets, daily range): BP systolic 94–136; BP diastolic 56–78
[2020-08-02 03:02] LABS: ALBUMIN 2.8 G/DL (3.4-5.0); ANION GAP 8 (8-16); BLOOD UREA NITROGEN 18 MG/DL (7-18); BUN/CREATININE RATIO 19.6 (5.4-32.0); CALCIUM 7.9 MG/DL (8.5-10.1); CHLORIDE 109 MMOL/L (99-107); CREATININE 0.92 MG/DL (0.60-1.10); GLUCOSE 90 MG/DL (70-104); MAGNESIUM 2.6 MG/DL (1.5-2.4); PHOSPHORUS 2.6 MG/DL (2.3-4.5); POTASSIUM 4.3 MMOL/L (3.5-5.1); SODIUM 141 MMOL/L (135-145); TOTAL CARBON DIOXIDE 23.7 MMOL/L (24-32); eGFR 86 ML/MIN
[2020-08-02 03:23] LABS: BASOPHILS % (AUTO) 0.1 % (0-1); EOSINOPHILS % (AUTO) 0.1 % (0-6); HEMATOCRIT 35.4 % (42.0-52.0); HEMOGLOBIN 11.8 g/dl (14.0-17.9); LYMPHOCYTES # (AUTO) 1.6 X10'3 (1.1-4.8); LYMPHOCYTES % (AUTO) 12.5 % (21-51); MEAN CORPUSCULAR HEMOGLOBIN 31.2 PG (27.0-31.0); MEAN CORPUSCULAR HGB CONC 33.4 g/dL (33.0-36.5); MEAN CORPUSCULAR VOLUME 93.4 FL (78-98); MONOCYTES # (AUTO) 1.1 X10'3 (0-0.9); MONOCYTES % (AUTO) 9.1 % (2-12); NEUTROPHILS # (AUTO) 9.8 X10'3 (1.8-7.7); NEUTROPHILS % (AUTO) 78.2 % (42-75); PLATELET COUNT 128 X10'3 (140-440); RED BLOOD COUNT 3.79 X10'6 (4.70-6.10); RED CELL DISTRIBUTION WIDTH 13.1 % (11.5-14.5); WHITE BLOOD COUNT 12.6 X10'3 (4.5-11.0)
[2020-08-02] MEDS: potassium Cl 20 mEq SR tablet PO PRN (03:51)
--- NOTE | 2020-08-02 06:43 | NUR ---
Problems reprioritized. Patient report given, questions answered & plan of care reviewed with TRICIA Reno.
[2020-08-02] MEDS ORDERED: amLODIPine 2.5mg tablet PO SCH (08:00)
[2020-08-02] MEDS: pantoprazole 40mg Tablet.DR PO SCH (08:02)
[2020-08-02] MEDS: aspirin 325mg tablet, delayed-release (Ecotrin) PO SCH (08:02)
[2020-08-02] MEDS: sennosides/docusate sodium tablet PO SCH ×2 (08:02→21:36)
[2020-08-02] MEDS: HYDROcodone/acetaminophen 10/325mg tab PO PRN ×3 (08:11→22:07)
[2020-08-02] MEDS: insulin Lispro (HumaLOG) vial - multi-dose SQ SCH ×3 (10:50→19:37)
[2020-08-02] MEDS ORDERED: magnesium hydroxide 30ml (MOM) UD suspension PO PRN (11:20)
[2020-08-02] MEDS ORDERED: morphine 2 MG/ML inj. syringe IV PRN (11:25)
--- NOTE | 2020-08-02 12:41 | NUR ---
Initial: Pt admit DX CAD s/p cardiac cath and POD #3 s/p aortic root replacement per EMR. PO 50-75% NCS meals at this time decent post-op. Pt seen by RD for written/verbal CABG/HH diet eds w/ RD contact information provided. Pt is agreeable to vasu PERRY; notified. LBM today; pt reports no issues w/ constipation during RD visit. Will continue to monitor for additional protein needs post-op. Rec: 1. advance diet as medically indicated to heart healthy 2. chocolate vicenta PERRY 3. routine bowel care 4. wt per rx Addendum: 08/02/20 at [address] Amended: Links added.
[2020-08-02] MEDS: JUVEN Shake w/Arg/Glut/Ca2+Bmb (Juven 19.3gm) pkt 240ml PO SCH (14:00)
--- NOTE | 2020-08-02 18:30 | NUR ---
Patient in room ICU 2039. I have received report from TRICIA Reno and had the opportunity to ask questions and assume patient care.
[2020-08-02] MEDS: lisinopril 2.5mg tablet PO SCH (21:36)
[2020-08-02] MEDS: atorvastatin 10mg tablet PO SCH (21:36)
[2020-08-03] VITALS (16 sets, daily range): BP systolic 105–138; BP diastolic 52–72
[2020-08-03 03:32] LABS: BASOPHILS % (AUTO) 0.3 % (0-1); EOSINOPHILS # (AUTO) 0.1 X10'3 (0-0.9); EOSINOPHILS % (AUTO) 0.7 % (0-6); HEMATOCRIT 36.3 % (42.0-52.0); HEMOGLOBIN 12.3 g/dl (14.0-17.9); LYMPHOCYTES # (AUTO) 1.3 X10'3 (1.1-4.8); LYMPHOCYTES % (AUTO) 13.8 % (21-51); MEAN CORPUSCULAR HEMOGLOBIN 31.7 PG (27.0-31.0); MEAN CORPUSCULAR VOLUME 93.2 FL (78-98); MEAN PLATELET VOLUME 7.6 FL (7.4-10.4); MONOCYTES % (AUTO) 10.1 % (2-12); NEUTROPHILS # (AUTO) 7.2 X10'3 (1.8-7.7); NEUTROPHILS % (AUTO) 75.1 % (42-75); PLATELET COUNT 179 X10'3 (140-440); RED BLOOD COUNT 3.89 X10'6 (4.70-6.10); WHITE BLOOD COUNT 9.6 X10'3 (4.5-11.0)
[2020-08-03 03:46] LABS: ALBUMIN 2.7 G/DL (3.4-5.0); ANION GAP 9 (8-16); BLOOD UREA NITROGEN 15 MG/DL (7-18); BUN/CREATININE RATIO 17.2 (5.4-32.0); CHLORIDE 105 MMOL/L (99-107); CREATININE 0.87 MG/DL (0.60-1.10); GLUCOSE 85 MG/DL (70-104); MAGNESIUM 2.3 MG/DL (1.5-2.4); PHOSPHORUS 4.3 MG/DL (2.3-4.5); POTASSIUM 3.8 MMOL/L (3.5-5.1); SODIUM 137 MMOL/L (135-145); TOTAL CARBON DIOXIDE 22.9 MMOL/L (24-32); eGFR > 90 ML/MIN
--- NOTE | 2020-08-03 06:30 | NUR ---
Problems reprioritized. Patient report given, questions answered & plan of care reviewed with TRICIA Reno.
[2020-08-03] MEDS ORDERED: furosemide 40mg/4ml inj IV ONE (07:10)
[2020-08-03] MEDS ORDERED: potassium Cl 20mEq/100mL bag 100 ML IV PRN (07:15)
[2020-08-03] MEDS ORDERED: magnesium 4gm in 100ml NS 100 ML IV PRN (07:15)
[2020-08-03] MEDS ORDERED: potassium Cl 20 mEq SR tablet PO PRN (07:15)
[2020-08-03] MEDS ORDERED: magnesium 2GM in 50ml NS 50 ML IV PRN (07:15)
[2020-08-03] MEDS: sennosides/docusate sodium tablet PO SCH ×2 (08:00→21:16)
[2020-08-03 10:45] LABS: ACTIVATED CLOTTING TIME 134 SEC (101-148)
[2020-08-03] MEDS: JUVEN Shake w/Arg/Glut/Ca2+Bmb (Juven 19.3gm) pkt 240ml PO SCH ×2 (12:30→17:30)
[2020-08-03] MEDS: aspirin 325mg tablet, delayed-release (Ecotrin) PO SCH (12:40)
[2020-08-03] MEDS: potassium Cl 20 mEq SR tablet PO SCH ×2 (12:41→21:16)
[2020-08-03] MEDS: HYDROcodone/acetaminophen 10/325mg tab PO PRN ×2 (12:41→21:17)
[2020-08-03] MEDS: magnesium Cl slow-release 64mg tablet PO SCH ×2 (12:41→20:00)
[2020-08-03] MEDS: pantoprazole 40mg Tablet.DR PO SCH (12:42)
--- NOTE | 2020-08-03 16:15 | NUR ---
Patient in room ICU 2039. I have received report from TRICIA Reno and had the opportunity to ask questions and assume patient care.
--- NOTE | 2020-08-03 16:30 | NUR ---
Patient to ACCE unit bed 308 with report given to TRICIA Palacios. All belongings with patient including cell phone and learning services coordinator, clothing and room belongings
--- NOTE | 2020-08-03 16:35 | NUR ---
received pt into room 308 oriented to surroundings,pt denies pain,moniter shows bradycardia,,rate mid 50's,BBB,occ 2nd degree heart block,type 2,do=779/56,pacer wires attached ,box set at 45,10,10. agree with previous drop hammer operator helper
--- NOTE | 2020-08-03 18:15 | NUR ---
Problems reprioritized. Patient report given, questions answered & plan of care reviewed with marcia Melendez.
--- NOTE | 2020-08-03 18:20 | NUR ---
Patient in room MED 308. I have received report from Pancho, and had the opportunity to ask questions and assume patient care.
[2020-08-03] MEDS: atorvastatin 10mg tablet PO SCH (21:16)
[2020-08-03] MEDS: lisinopril 2.5mg tablet PO SCH (21:16)
--- NOTE | 2020-08-03 23:48 | NUR ---
Patient is resting, the, pacing spikes at 45 noticed on the tele monitor. Patient is asymptomatic. Marlyn, the charge nurse is aware of the changes. Addendum: 08/04/20 at 0004 by German Carroll RN The pacing started at 2312 with heart rate being at 45.
[2020-08-04] VITALS (8 sets, daily range): BP systolic 89–120; BP diastolic 50–61
--- NOTE | 2020-08-04 05:35 | NUR ---
Patient is doing well. Slept well. Not under any distress. Patient is v-paced with heart rate at 45. Pacer is on and working fine. The pacer spikes visible on the tele monitor.
[2020-08-04 06:00] LABS: BASOPHILS % (AUTO) 0.3 % (0-1); EOSINOPHILS # (AUTO) 0.1 X10'3 (0-0.9); HEMOGLOBIN 13.7 g/dl (14.0-17.9); LYMPHOCYTES # (AUTO) 1.5 X10'3 (1.1-4.8); LYMPHOCYTES % (AUTO) 10.6 % (21-51); MEAN CORPUSCULAR HGB CONC 34.3 g/dL (33.0-36.5); MEAN CORPUSCULAR VOLUME 93.1 FL (78-98); MONOCYTES # (AUTO) 1.6 X10'3 (0-0.9); MONOCYTES % (AUTO) 11.5 % (2-12); NEUTROPHILS # (AUTO) 10.5 X10'3 (1.8-7.7); NEUTROPHILS % (AUTO) 76.6 % (42-75); PLATELET COUNT 252 X10'3 (140-440); RED BLOOD COUNT 4.29 X10'6 (4.70-6.10); RED CELL DISTRIBUTION WIDTH 13.2 % (11.5-14.5); WHITE BLOOD COUNT 13.7 X10'3 (4.5-11.0)
[2020-08-04 06:08] LABS: ALBUMIN 2.7 G/DL (3.4-5.0); ANION GAP 9 (8-16); BLOOD UREA NITROGEN 19 MG/DL (7-18); BUN/CREATININE RATIO 20.4 (5.4-32.0); CALCIUM 8.4 MG/DL (8.5-10.1); CHLORIDE 104 MMOL/L (99-107); CREATININE 0.93 MG/DL (0.60-1.10); GLUCOSE 110 MG/DL (70-104); POTASSIUM 4.2 MMOL/L (3.5-5.1); SODIUM 136 MMOL/L (135-145); TOTAL CARBON DIOXIDE 23.2 MMOL/L (24-32); eGFR 85 ML/MIN
--- NOTE | 2020-08-04 06:15 | NUR ---
Patient in room MED 308. I have received report from TRICIA Porter and had the opportunity to ask questions and assume patient care.
--- NOTE | 2020-08-04 06:15 | NUR ---
Patient in room MED 308. I have received report from marcia Porter and had the opportunity to ask questions and assume patient care.
--- NOTE | 2020-08-04 06:20 | NUR ---
Problems reprioritized. Patient report given to Pancho, questions answered & plan of care reviewed with .
[2020-08-04 08:13] LABS: MAGNESIUM 2.2 MG/DL (1.5-2.4)
[2020-08-04] MEDS: aspirin 325mg tablet, delayed-release (Ecotrin) PO SCH (08:30)
[2020-08-04] MEDS: pantoprazole 40mg Tablet.DR PO SCH (08:30)
[2020-08-04] MEDS: potassium Cl 20 mEq SR tablet PO SCH ×2 (08:30→20:28)
[2020-08-04] MEDS: sennosides/docusate sodium tablet PO SCH ×2 (08:31→20:28)
[2020-08-04] MEDS: magnesium Cl slow-release 64mg tablet PO SCH ×2 (08:31→20:29)
[2020-08-04] MEDS: JUVEN Shake w/Arg/Glut/Ca2+Bmb (Juven 19.3gm) pkt 240ml PO SCH ×2 (12:30→17:30)
--- NOTE | 2020-08-04 18:22 | NUR ---
Problems reprioritized. Patient report given, questions answered & plan of care reviewed with marcia Porter.
--- NOTE | 2020-08-04 18:30 | NUR ---
Patient in room MED 308. I have received report from Pancho, and had the opportunity to ask questions and assume patient care.
--- NOTE | 2020-08-04 18:45 | NUR ---
Dr. Divina Song called and ordered to put the patient NPO after breakfast for PPM placement. No other orders were given at this time.
[2020-08-04] MEDS: atorvastatin 10mg tablet PO SCH (20:29)
[2020-08-04] MEDS: HYDROcodone/acetaminophen 10/325mg tab PO PRN (20:30)
[2020-08-04] MEDS: lisinopril 2.5mg tablet PO SCH (20:37)
[2020-08-05] VITALS (16 sets, daily range): BP systolic 109–133; BP diastolic 55–89
--- NOTE | 2020-08-05 05:46 | NUR ---
No events overnight. The patient start pacing at 45 most of the night. Asymptomatic. No chest pain, No SOB. Patient will NPO after breakfast for possible PPM by Dr. Divina Song. Consent is singed and in the chart.
--- NOTE | 2020-08-05 06:27 | NUR ---
Problems reprioritized. Patient report given to AlanRN, questions answered & plan of care reviewed with .
--- NOTE | 2020-08-05 06:56 | NUR ---
Patient in room MED 308. I have received report from TRICIA Porter and had the opportunity to ask questions and assume patient care.
[2020-08-05 06:58] LABS: BASOPHILS % (AUTO) 0.3 % (0-1); EOSINOPHILS # (AUTO) 0.1 X10'3 (0-0.9); EOSINOPHILS % (AUTO) 0.8 % (0-6); HEMATOCRIT 40.8 % (42.0-52.0); HEMOGLOBIN 13.7 g/dl (14.0-17.9); LYMPHOCYTES # (AUTO) 1.1 X10'3 (1.1-4.8); LYMPHOCYTES % (AUTO) 8.6 % (21-51); MEAN CORPUSCULAR HEMOGLOBIN 31.7 PG (27.0-31.0); MEAN CORPUSCULAR HGB CONC 33.7 g/dL (33.0-36.5); MEAN PLATELET VOLUME 7.3 FL (7.4-10.4); MONOCYTES # (AUTO) 1.6 X10'3 (0-0.9); MONOCYTES % (AUTO) 11.9 % (2-12); NEUTROPHILS # (AUTO) 10.5 X10'3 (1.8-7.7); NEUTROPHILS % (AUTO) 78.4 % (42-75); PLATELET COUNT 244 X10'3 (140-440); RED BLOOD COUNT 4.34 X10'6 (4.70-6.10); RED CELL DISTRIBUTION WIDTH 13.3 % (11.5-14.5); WHITE BLOOD COUNT 13.4 X10'3 (4.5-11.0)
[2020-08-05] MEDS: potassium Cl 20 mEq SR tablet PO SCH ×2 (07:45→20:28)
[2020-08-05] MEDS: pantoprazole 40mg Tablet.DR PO SCH (07:45)
[2020-08-05] MEDS: aspirin 325mg tablet, delayed-release (Ecotrin) PO SCH (07:45)
[2020-08-05] MEDS: magnesium Cl slow-release 64mg tablet PO SCH ×2 (07:46→20:28)
[2020-08-05] MEDS: sennosides/docusate sodium tablet PO SCH ×2 (07:46→20:28)
[2020-08-05 07:50] LABS: ALBUMIN 2.6 G/DL (3.4-5.0); ANION GAP 13 (8-16); BLOOD UREA NITROGEN 15 MG/DL (7-18); BUN/CREATININE RATIO 18.8 (5.4-32.0); CALCIUM 8.4 MG/DL (8.5-10.1); CHLORIDE 107 MMOL/L (99-107); GLUCOSE 87 MG/DL (70-104); POTASSIUM 4.2 MMOL/L (3.5-5.1); SODIUM 141 MMOL/L (135-145); TOTAL CARBON DIOXIDE 21.3 MMOL/L (24-32); eGFR > 90 ML/MIN
[2020-08-05 07:51] LABS: PLATELET ESTIMATE NORMAL; TOTAL CELLS COUNTED 100
--- NOTE | 2020-08-05 10:00 | NUR ---
CALLED PRODUCTION DRILLING MACHINE OPERATOR TO INQUIRE ABOUT ETA FOR PPM. THEY INFORMED PATIENT NOT ON SCHEDULE
--- NOTE | 2020-08-05 10:23 | NUR ---
CALLED DR. Divina JARAMILLO TO INQUIRE ABOUT PPM TIME. HE INFORMED HE WILL SEE PATIENT AFTER HIS CLINICALS AND IF PT STILL NEEDS/WANTS PPM, WILL BE DONE IN THE EVENING.
[2020-08-05] MEDS: JUVEN Shake w/Arg/Glut/Ca2+Bmb (Juven 19.3gm) pkt 240ml PO SCH ×2 (12:30→17:30)
[2020-08-05] MEDS ORDERED: ceFAZolin 1000mg inj ONE (16:16)
[2020-08-05] MEDS ORDERED: fentaNYL/PF 50MCG/1 ML 2ML syringe ONE (16:16)
[2020-08-05] MEDS ORDERED: ceFAZolin 2gm in dextrose, iso 50 ML IV ONE (16:16)
[2020-08-05] MEDS ORDERED: midazolam 2 mg/2 ml injection ONE (16:16)
[2020-08-05] MEDS ORDERED: LIDOcaine 1% W/epiNEPHrine 1:100,000 20ml vial ONE (16:16)
--- NOTE | 2020-08-05 17:28 | NUR ---
Student documentation: I have reviewed and agree with all interventions, assessments performed and documented by YOUNG Carmona.
--- NOTE | 2020-08-05 18:19 | NUR ---
Patient in room MED 308. I have received report from Kell CLARKE and had the opportunity to ask questions and assume patient care.
--- NOTE | 2020-08-05 18:19 | NUR ---
Problems reprioritized. Patient report given, questions answered & plan of care reviewed with TRICIA Panda.
[2020-08-05] MEDS ORDERED: normal saline 1000ml 1,000 ML IV SCH (18:50)
[2020-08-05] MEDS: lisinopril 2.5mg tablet PO SCH (20:28)
[2020-08-05] MEDS: atorvastatin 10mg tablet PO SCH (20:28)
[2020-08-05] MEDS: HYDROcodone/acetaminophen 10/325mg tab PO PRN (22:07)
[2020-08-06] VITALS: BP 114/69
[2020-08-06 01:00] VITALS: BP 110/77
[2020-08-06 02:00] VITALS: BP 112/76
[2020-08-06 06:00] VITALS: BP 114/81
--- NOTE | 2020-08-06 06:12 | NUR ---
Patient in room MED 308. I have received report from TRICIA Panda and had the opportunity to ask questions and assume patient care.
--- NOTE | 2020-08-06 06:12 | NUR ---
Problems reprioritized. Patient report given, questions answered & plan of care reviewed with Kell CLARKE.
[2020-08-06 07:03] LABS: BASOPHILS % (AUTO) 0.2 % (0-1); EOSINOPHILS # (AUTO) 0.1 X10'3 (0-0.9); EOSINOPHILS % (AUTO) 0.5 % (0-6); HEMATOCRIT 38.7 % (42.0-52.0); LYMPHOCYTES # (AUTO) 0.9 X10'3 (1.1-4.8); LYMPHOCYTES % (AUTO) 7.6 % (21-51); MEAN CORPUSCULAR HEMOGLOBIN 30.8 PG (27.0-31.0); MEAN CORPUSCULAR HGB CONC 33.5 g/dL (33.0-36.5); MEAN PLATELET VOLUME 6.5 FL (7.4-10.4); MONOCYTES # (AUTO) 1.4 X10'3 (0-0.9); MONOCYTES % (AUTO) 12.5 % (2-12); NEUTROPHILS # (AUTO) 8.9 X10'3 (1.8-7.7); NEUTROPHILS % (AUTO) 79.2 % (42-75); PLATELET COUNT 277 X10'3 (140-440); RED BLOOD COUNT 4.21 X10'6 (4.70-6.10); RED CELL DISTRIBUTION WIDTH 13.1 % (11.5-14.5); WHITE BLOOD COUNT 11.3 X10'3 (4.5-11.0)
[2020-08-06 07:24] LABS: ALBUMIN 2.6 G/DL (3.4-5.0); ANION GAP 11 (8-16); BLOOD UREA NITROGEN 13 MG/DL (7-18); BUN/CREATININE RATIO 16.5 (5.4-32.0); CALCIUM 8.5 MG/DL (8.5-10.1); CHLORIDE 104 MMOL/L (99-107); CREATININE 0.79 MG/DL (0.60-1.10); GLUCOSE 106 MG/DL (70-104); MAGNESIUM 2.2 MG/DL (1.5-2.4); POTASSIUM 4.1 MMOL/L (3.5-5.1); SODIUM 137 MMOL/L (135-145); eGFR > 90 ML/MIN
[2020-08-06] MEDS: sennosides/docusate sodium tablet PO SCH (07:34)
[2020-08-06] MEDS: pantoprazole 40mg Tablet.DR PO SCH (07:34)
[2020-08-06] MEDS: potassium Cl 20 mEq SR tablet PO SCH (07:34)
[2020-08-06] MEDS: magnesium Cl slow-release 64mg tablet PO SCH (07:34)
[2020-08-06] MEDS: aspirin 325mg tablet, delayed-release (Ecotrin) PO SCH (07:34)
[2020-08-06] MEDS: HYDROcodone/acetaminophen 10/325mg tab PO PRN (07:35)
[2020-08-06] MEDS ORDERED: SENN-166 PO (07:50)
[2020-08-06] MEDS ORDERED: ASPI-845 PO (07:50)
[2020-08-06] MEDS ORDERED: LISI2.5T2 PO (07:50)
[2020-08-06] MEDS ORDERED: HYDR-4353 PO ×2 (07:50→10:11)
[2020-08-06] MEDS ORDERED: CEPH-572 PO (07:53)
[2020-08-06] MEDS ORDERED: METO25TA6 PO ×2 (09:24→09:26)
--- NOTE | 2020-08-06 17:00 | NUR ---
pt. discharged from facility at 1340. pt. was wheeled down to lobby by staff and picked up by family. pt. signed and understood all paperwork. pt. meds were escripted to [facility] on [facility]. and pt. confirmed that they were there. pt. understands to make f/u appointments with Dr. Martins and his care specialist. pt. IV was d/c intact. pt. left with all belongings.
[2020-08-06] MEDS ORDERED: metoprolol tartrate 12.5mg (1/2 tablet) PO SCH (20:00)
== END 2020-08-06 13:15 | disposition home or self-care (01) | DRG 217 ==
LOC: ER 11:00 → ED HOLD 15:04 → MED 3N 20:30 → ICU 2S 07-30 11:57 → MED 3N 08-03 16:20
PROVIDERS: ADMIT Family Medicine; ATTEND Thoracic Surgery (Cardiothoracic Vascular Surgery)
PROC: 4A023N7 Measurement of Cardiac Sampling and Pressure, Left Heart, Percutaneous Approach (ICD-10-PCS; 2020-07-29)
PROC: B2151ZZ Fluoroscopy of Left Heart using Low Osmolar Contrast (ICD-10-PCS; 2020-07-29)
PROC: B32T1ZZ Computerized Tomography (CT Scan) of Left Pulmonary Artery using Low Osmolar Contrast (ICD-10-PCS; 2020-07-29)
PROC: B32S1ZZ Computerized Tomography (CT Scan) of Right Pulmonary Artery using Low Osmolar Contrast (ICD-10-PCS; 2020-07-29)
PROC: B24BZZ4 Ultrasonography of Heart with Aorta, Transesophageal (ICD-10-PCS; 2020-07-30)
PROC: 30233M1 Transfusion of Nonautologous Plasma Cryoprecipitate into Peripheral Vein, Percutaneous Approach (ICD-10-PCS; 2020-07-30)
PROC: 30233N1 Transfusion of Nonautologous Red Blood Cells into Peripheral Vein, Percutaneous Approach (ICD-10-PCS; 2020-07-30)
PROC: 02RX08Z Replacement of Thoracic Aorta, Ascending/Arch with Zooplastic Tissue, Open Approach (ICD-10-PCS; principal; 2020-07-30 06:42)
PROC: 0JH606Z Insertion of Pacemaker, Dual Chamber into Chest Subcutaneous Tissue and Fascia, Open Approach (ICD-10-PCS; 2020-08-05)
PROC: 02H63JZ Insertion of Pacemaker Lead into Right Atrium, Percutaneous Approach (ICD-10-PCS; 2020-08-05)
PROC: 02HK3JZ Insertion of Pacemaker Lead into Right Ventricle, Percutaneous Approach (ICD-10-PCS; 2020-08-05)
DX: I35.0 Nonrheumatic aortic (valve) stenosis (principal); I31.3 Pericardial effusion (noninflammatory); I44.2 Atrioventricular block, complete; I50.9 Heart failure, unspecified; Z20.828 Contact with and (suspected) exposure to other viral communicable diseases; I71.2 Thoracic aortic aneurysm, without rupture; Z95.0 Presence of cardiac pacemaker
CPT/HCPCS: 0232T; 33208; 93306; 93312; 93325; 93454; 99285; Z7506; Z7508; 36415; 36430; 36600; 71045; 71046; 71275; 76700; 76937; 80048; 80053; 80061; 81003; 82330; 82435; 82803; 82947; 82948; 83036; 83690; 83735; 83880; 84100; 84132; 84295; 84484; 85007; 85018; 85025; 85347; 85379; 85384; 85610; 85730; 86885; 86900; 86901; 86920; 87081; 87635; 93005; 93308; 93880; 93971; 94002; 94010; 94668; 94760; 97110; 97116; 97161; 97530; 99152; 99153; A4618; A4620; A5120; A6258; A6402; A6449; A7000; A7048; C1713; C1751; C1768; C1769; C1785; C1894; C1898; C9113; C9250; G0378; J0131; J0690; J1644; J1815; J1940; J2001; J2060; J2150; J2175; J2250; J2270; J2370; J2930; J3010; J3370; J3480; J3490; J7030; J7040; J7050; J7060; J7120; P9012; P9035; P9047; Q9967

== ENCOUNTER 2023-01-26 09:27 | Day surgery (SDC) | payer BC ==
[2023-01-19 11:25] LABS: BASOPHILS % (AUTO) 0.6 % (0-1); EOSINOPHILS # (AUTO) 0.1 X10'3 (0-0.9); LYMPHOCYTES # (AUTO) 1.3 X10'3 (1.1-4.8); MEAN CORPUSCULAR HEMOGLOBIN 31.2 PG (27.0-31.0); MEAN CORPUSCULAR HGB CONC 32.9 g/dL (33.0-36.5); MEAN CORPUSCULAR VOLUME 94.9 FL (78-98); MEAN PLATELET VOLUME 6.7 FL (7.4-10.4); MONOCYTES # (AUTO) 0.6 X10'3 (0-0.9); MONOCYTES % (AUTO) 10.1 % (2-12); NEUTROPHILS # (AUTO) 4.2 X10'3 (1.8-7.7); NEUTROPHILS % (AUTO) 67.3 % (42-75); PRE OP HEMATOCRIT 50.6 % (42.0-52.0); PRE OP HEMOGLOBIN 16.7 g/dL (14.0-17.9); PRE OP PLATELET COUNT 190 X10'3 (140-440); RED BLOOD COUNT 5.33 X10'6 (4.70-6.10); RED CELL DISTRIBUTION WIDTH 13.4 % (11.5-14.5)
[2023-01-19 11:34] LABS: ALBUMIN/GLOBULIN RATIO 1.1 (1.1-1.5); ALKALINE PHOSPHATASE 84 IU/L (46-116); BLOOD UREA NITROGEN 15 MG/DL (7-18); BUN/CREATININE RATIO 14.3 (10.0-20.0); CALCIUM 9.1 MG/DL (8.5-10.1); CHLORIDE 106 MMOL/L (99-107); CREATININE 1.05 MG/DL (0.60-1.10); PRE OP ALT 55 U/L (30-65); PRE OP ANION GAP 9 (8-16); PRE OP AST 31 U/L (10-37); PRE OP BILIRUB, TOTAL 0.9 MG/DL (0.0-1.0); PRE OP GLUCOSE 108 MG/DL (70-104); PRE OP POTASSIUM 4.3 MMOL/L (3.4-5.1); PRE OP SODIUM 141 MMOL/L (135-145); TOTAL CARBON DIOXIDE 26.1 MMOL/L (24-32); TOTAL PROTEIN 7.8 G/DL (6.4-8.2); eGFR 73 ML/MIN
[~2023-01-26] VITALS: Ht 180.3 cm; Wt 104.3 kg
[2023-01-26] VITALS (19 sets, daily range): BP systolic 102–154; BP diastolic 57–89
[~2023-01-26 09:27] MED LIST: ASPI-529 PO; CENTRUM VITAMIN; DOCUMENT DATE & TIME OF BETA-BLOCKER PO ONE; HYDROcodone/acetaminophen 10/325mg tab PO PRN; HYDROmorphone 1 mg/ml syringe IV PRN; HYDROmorphone inj. 0.5 MG/0.5 ML DISP.SYRIN IV PRN; IBUP-24 PO; LISI20TA28 PO; METO50TA16 PO; acetaminophen 325mg tablet PO ONE; acetaminophen 325mg tablet PO PRN; bisacodyl 10mg suppository rectal RC PRN; cefazolin 2gm/D5W 100mL 100 ML IV ONE; celeCOXIB 100mg capsule PO ONE; diphenhydrAMINE 25mg capsule PO PRN; famotidine 20mg tablet PO ONE; gabapentin 300mg capsule PO ONE; magnesium hydroxide 30ml (MOM) UD suspension PO PRN; metoclopramide 5 mg/ml inj IV ONE; naloxone 0.4 mg/ml inj IV PRN; ondansetron/PF 4mg/2ml inj IV PRN; oxyCODONE SR 10mg (sust. release) tab -2 tabs (20mg) PO ONE; ringers solution, lacted 1,000 ML IV SCH; tranexamic acid inj. 1,000 MG in normal saline IV soln 100ML IV ONE; vancomycin 1,500 MG in NS 300ml IV soln IV ONE
[2023-01-26] MEDS ORDERED: labetalol 20mg/4ml (5mg/ml) syringe IV PRN (09:35)
[2023-01-26] MEDS ORDERED: ringers solution, lacted 1,000 ML IV SCH (09:35)
[2023-01-26] MEDS ORDERED: hydrALAZINE 20mg/ml inj. IV PRN (09:35)
[2023-01-26] MEDS ORDERED: ondansetron/PF 4mg/2ml inj IV PRN (09:35)
[2023-01-26] MEDS ORDERED: fentaNYL/PF 50MCG/1 ML 2ML syringe IV PRN ×2 (09:35)
[2023-01-26] MEDS ORDERED: morphine 2 MG/ML inj. syringe IV PRN (09:35)
[2023-01-26] MEDS ORDERED: morphine 4 MG/ML inj SYRINge IV PRN (09:35)
--- NOTE | 2023-01-26 11:37 | NUR ---
CSM INTACT, PEDAL PULSES MARKED, VIDEO WATCHED, NO OINTMENT ORDERED,
[2023-01-26] MEDS ORDERED: epiNEPHrine 1 mg/ml inj ONE (13:24)
[2023-01-26] MEDS ORDERED: cloNIDine hcl/PF 100mcg/ml inj ONE (13:24)
[2023-01-26] MEDS ORDERED: vancomycin 1,000mg inj ONE (13:24)
[2023-01-26] MEDS ORDERED: ROPIVAcaine 0.5% (5mg/ml) 30ml vial ONE (13:25)
[2023-01-26] MEDS ORDERED: ROPIVAcaine 0.5% (5mg/ml) 30ml vial IJ ONE (13:30)
[2023-01-26] MEDS ORDERED: cloNIDine hcl/PF 100mcg/ml inj EP ONE (13:30)
[2023-01-26] MEDS ORDERED: epiNEPHrine 1 mg/ml inj SQ ONE (13:30)
[2023-01-26] MEDS ORDERED: fentaNYL/PF 50MCG/1 ML 2ML syringe ONE (13:56)
[2023-01-26] MEDS ORDERED: MIDAZolam 1 MG/ML 5ML VIAL ONE (13:57)
[2023-01-26] MEDS ORDERED: PHENYLephrine 10mg/ml 5ml injection IV ONE (14:00)
--- NOTE | 2023-01-26 15:48 | NUR ---
Received from OR via HOSPITAL BED, accompanied by Anesthesiologist and report given by [facility] Anesthesiologist. PT WAKING UP. VSS. PT PRESENTS WITH PIV 20G LEFT HAND, RIGHT HIP DEVANG DRESSING C/D/I WITH ICE PACK, KNEE IMMOBILIZER, DISTAL PULSES NOTED. Addendum: 01/26/23 at 1642 by Percy Mascorro RN Amended: Links added.
[2023-01-26] MEDS ORDERED: tranexamic acid inj. 1,000 MG in normal saline 100ml IV soln 90 ML IV ONE (16:00)
--- NOTE | 2023-01-26 17:18 | NUR ---
PATIENT HAS MET ALL CRITERIA FOR TRANSFER TO ORTHO FLOOR. VSS. DRESSINGS INTACT. BED LOW, CALL LIGHT PRESENT AND 2 RAILS UP. RN PRESENT TO ACCEPT CARE OF PATIENT AND REPORT HAS BEEN CALLED. ALL QUESTIONS ANSWERED TO ACCEPTING RN. Addendum: 01/26/23 at 1729 by Percy Mascorro RN Amended: Links added.
--- NOTE | 2023-01-26 18:35 | NUR ---
Patient came from PACU at 1718. Vital signs stable. Patient reports no pain. Postop vitals started.
--- NOTE | 2023-01-26 18:36 | NUR ---
Problems reprioritized. Patient report given, questions answered & plan of care reviewed with TRICIA Moore.
[2023-01-26] MEDS: potassium cl 20mEq in 1/2 NS 1,000 ML IV SCH ×2 (19:07→22:00)
[2023-01-26] MEDS: VANCOMYCIN 1,500MG inj. 1,500 MG in normal saline 500ml IV soln 300 ML IV SCH (20:23)
[2023-01-26] MEDS: metoprolol tartrate 50mg tablet PO SCH (20:24)
[2023-01-26] MEDS: ascorbic acid 500mg tablet PO SCH (20:24)
[2023-01-26] MEDS: gabapentin 300mg capsule PO SCH (20:25)
[2023-01-26] MEDS: HYDROcodone/acetaminophen 10/325mg tab PO PRN (20:25)
[2023-01-26] MEDS ORDERED: sennosides 8.6mg tablet PO SCH (21:00)
[2023-01-26] MEDS ORDERED: lisinopril 2.5mg tablet PO SCH (21:00)
[2023-01-26] MEDS ORDERED: lisinopril 20mg tablet PO SCH (21:00)
[2023-01-27] MEDS: HYDROcodone/acetaminophen 10/325mg tab PO PRN ×2 (00:10→05:25)
[2023-01-27 02:00] VITALS: BP 106/69
[2023-01-27 06:00] VITALS: BP 125/69
--- NOTE | 2023-01-27 06:11 | NUR ---
Problems reprioritized. Patient report given, questions answered & plan of care reviewed with TRICIA Vaughan.
--- NOTE | 2023-01-27 06:16 | NUR ---
Problems reprioritized. Patient report given, questions answered & plan of care reviewed with TRICIA Vaughan.
[2023-01-27] MEDS: metoprolol tartrate 50mg tablet PO SCH (07:04)
[2023-01-27] MEDS: gabapentin 300mg capsule PO SCH (07:04)
[2023-01-27] MEDS: ascorbic acid 500mg tablet PO SCH (07:05)
[2023-01-27] MEDS: potassium cl 20mEq in 1/2 NS 1,000 ML IV SCH (07:05)
[2023-01-27 07:38] LABS: BASOPHILS % (AUTO) 0.2 % (0-1); EOSINOPHILS % (AUTO) 0.2 % (0-6); HEMATOCRIT 42.1 % (42.0-52.0); HEMOGLOBIN 14.2 g/dl (14.0-17.9); LYMPHOCYTES # (AUTO) 0.9 X10'3 (1.1-4.8); LYMPHOCYTES % (AUTO) 12.2 % (21-51); MEAN CORPUSCULAR HEMOGLOBIN 32.4 PG (27.0-31.0); MEAN CORPUSCULAR HGB CONC 33.7 g/dL (33.0-36.5); MEAN CORPUSCULAR VOLUME 96.2 FL (78-98); MEAN PLATELET VOLUME 7.1 FL (7.4-10.4); MONOCYTES # (AUTO) 0.8 X10'3 (0-0.9); MONOCYTES % (AUTO) 10.1 % (2-12); NEUTROPHILS # (AUTO) 5.9 X10'3 (1.8-7.7); NEUTROPHILS % (AUTO) 77.3 % (42-75); PLATELET COUNT 155 X10'3 (140-440); RED BLOOD COUNT 4.37 X10'6 (4.70-6.10); RED CELL DISTRIBUTION WIDTH 13.5 % (11.5-14.5); WHITE BLOOD COUNT 7.7 X10'3 (4.5-11.0)
[2023-01-27 07:47] LABS: ANION GAP 9 (8-16); CHLORIDE 102 MMOL/L (99-107); SODIUM 136 MMOL/L (135-145); TOTAL CARBON DIOXIDE 24.7 MMOL/L (24-32)
[2023-01-27 07:49] LABS: POTASSIUM 3.8 MMOL/L (3.5-5.1)
[2023-01-27] MEDS ORDERED: multivitamins, therapeutics tablet PO SCH (08:00)
[2023-01-27] MEDS ORDERED: aspirin 325mg tablet PO SCH (08:30)
[2023-01-27] MEDS: VANCOMYCIN 1,500MG inj. 1,500 MG in normal saline 500ml IV soln 300 ML IV SCH (09:03)
[2023-01-27 10:00] VITALS: BP 113/58
--- NOTE | 2023-01-27 11:02 | NUR ---
Per EMR pt s/p right COSMO, discharging at this time. Written protein education with ONS coupons and RD contact information mailed to patient's home address found in EMR. Will remain available. Addendum: 01/27/23 at [address] Amended: Links added.
--- NOTE | 2023-01-27 12:39 | NUR ---
patient discharged t0 home in stable condition. iv removed tip intact, no complications. pt sent home with powder packs, dressing. pt and educated on discharge instructions. belonging sent with pt.
[2023-01-27] MEDS ORDERED: celeCOXIB 100mg capsule PO SCH (20:00)
== END 2023-01-27 12:20 | disposition home or self-care (01) ==
LOC: PAS 09:27 → ORTHO 4S 16:56 → PAS 01-27 12:20
PROVIDERS: ATTEND Orthopaedic Surgery
DX: M16.11 Unilateral primary osteoarthritis, right hip (principal); I10 Essential (primary) hypertension; I25.2 Old myocardial infarction; E66.9 Obesity, unspecified; Z68.32 Body mass index [BMI] 32.0-32.9, adult; Z98.890 Other specified postprocedural states; Z95.2 Presence of prosthetic heart valve; Z95.0 Presence of cardiac pacemaker; Z79.82 Long term (current) use of aspirin; Z79.899 Other long term (current) drug therapy; Z72.89 Other problems related to lifestyle; Z82.5 Family history of asthma and other chronic lower respiratory diseases
CPT/HCPCS: 27130; 36415; 72170; 80051; 80053; 82948; 85025; 86885; 86900; 86901; 87081; 97110; 97116; 97161; C1776; J0171; J0690; J0735; J1170; J2250; J2370; J2765; J2795; J3010; J3370; J3480; J3490; J7030; J7040; J7060; J7120; Z7506; Z7508; Z7512; 97530; A7000; G0378